=== PATIENT | female | born 1990 | race Caucasian/White ===

== ENCOUNTER 2017-07-10 02:11 | Emergency (ER) | END 2017-07-10 04:51 | disposition home or self-care (01) ==

== ENCOUNTER 2017-07-12 19:23 | Outpatient (CLI) | END 2017-07-12 23:11 | disposition home or self-care (01) ==

== ENCOUNTER 2017-08-03 14:04 | Outpatient (CLI) | END 2017-08-03 16:44 | disposition home or self-care (01) ==

== ENCOUNTER 2017-09-13 22:23 | Inpatient (IN) | END 2017-09-18 16:07 | disposition home or self-care (01) | DRG 775 ==